=== PATIENT | female | born 2000 | race Caucasian/White ===

== ENCOUNTER 2018-12-09 13:33 | Emergency (ER) | payer MEDICAID ==
[2018-12-09 14:12] LABS: Basophils % (A) 1 %; Eosinophils # (A) 0.2 k/uL (0-0.7); Eosinophils % (A) 3 %; HCT 45.1 % (34.0-46.0); HGB 14.4 gm/dL (11.4-16.0); Lymphocytes # (A) 2.7 k/uL (1.0-4.8); Lymphocytes % (A) 37 %; MCHC 31.8 g/dL (31.0-37.0); MCV 94.4 fL (80.0-100.0); Mean Platelet Volume 7.3; Monocytes # (A) 0.3 k/uL (0-1.0); Monocytes % (A) 4 %; Neutrophils % (A) 53 %; Platelet Count 268 k/uL (150-450); RBC 4.78 m/uL (3.80-5.40); RDW 12.7 % (11.5-15.5); WBC 7.4 k/uL (4.0-11.0)
--- NOTE | 2018-12-09 14:18 | ED ---
Female Urogenital HPI - General Chief complaint: Vaginal Bleeding Stated complaint: Vaginal Bleeding Time Seen by Provider: 12/09/18 13:50 Source: patient, RN notes reviewed Mode of arrival: ambulatory Limitations: no limitations - History of Present Illness Initial comments: This 18-year-old female presents emergency from chief complaint of vaginal blee ding. Patient states symptoms started today. Patient stopped control with September. She states that she stopped intentions to becoming . Patient states that bleeding is slightly heavier than her usual menstrual cycle. She denies any positive test at home. She states that she's taken multiple and states that she takes some approximately once a week. She has no current urinary symptoms. Denies fevers chills no flank pain. Last Menstrual Period: 10/27/18 - Related Data Home Medications Medication Instructions Recorded Confirmed No Known Home Medications 12/09/18 12/09/18 Allergies Allergy/AdvReac Type Severity Reaction Status Date / Time No Known Allergies Allergy Verified 12/09/18 14:18 Review of Systems ROS Statement: Those systems with pertinent positive or pertinent negative responses have been documented in the HPI. ROS Other: All systems not noted in ROS Statement are negative. Past Medical History Past Medical History: No Reported History History of Any Multi-Drug Resistant Organisms: None Reported Past Surgical History: No Surgical Hx Reported Past Psychological History: No Psychological Hx Reported Smoking Status: Never smoker Past Alcohol Use History: Occasional Past Drug Use History: None Reported General Exam Limitations: no limitations General appearance: alert, in no apparent distress Head exam: Present: atraumatic, normocephalic, normal inspection Eye exam: Present: normal appearance, PERRL, EOMI. Absent: scleral icterus, conjunctival injection, periorbital swelling ENT exam: Present: normal exam, normal oropharynx, mucous membranes moist, TM's normal bilaterally Neck exam: Present: normal inspection, full ROM. Absent: tenderness, meningismus, lymphadenopathy Respiratory exam: Present: normal lung sounds bilaterally. Absent: respiratory distress, wheezes, rales, rhonchi, stridor Cardiovascular Exam: Present: regular rate, normal rhythm, normal heart sounds. Absent: systolic murmur, diastolic murmur, rubs, gallop, clicks GI/Abdominal exam: Present: soft, normal bowel sounds. Absent: distended, tenderness, guarding, rebound, rigid Back exam: Absent: CVA tenderness (R), CVA tenderness (L) Neurological exam: Present: alert Skin exam: Present: warm, dry, intact, normal color. Absent: rash Course Vital Signs 12/09/18 13:37 Temperature 98.3 F Pulse Rate 67 Respiratory 16 Rate Blood Pressure 134/78 O2 Sat by Pulse 98 Oximetry Medical Decision Making - Medical Decision Making Laboratory unremarkable. I do feel that the patient's bleeding is related to stopping her control. 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 Patient had a negative test at this time. Patient discharged in stable condition. - Lab Data Result diagrams: 12/09/18 14:05 12/09/18 14:05 Lab Results 12/09/18 12/09/18 12/09/18 Range/Units 14:05 14:05 14:05 WBC 7.4 (4.0-11.0) k/uL RBC 4.78 (3.80-5.40) m/uL Hgb 14.4 (11.4-16.0) gm/dL Hct 45.1 (34.0-46.0) % MCV 94.4 (80.0-100.0) fL MCH 30.0 (25.0-35.0) pg MCHC 31.8 (31.0-37.0) g/dL RDW 12.7 (11.5-15.5) % Plt Count 268 (150-450) k/uL Neutrophils % 53 % Lymphocytes % 37 % Monocytes % 4 % Eosinophils % 3 % Basophils % 1 % Neutrophils # 4.0 (1.3-7.7) k/uL Lymphocytes # 2.7 (1.0-4.8) k/uL Monocytes # 0.3 (0-1.0) k/uL Eosinophils # 0.2 (0-0.7) k/uL Basophils # 0.0 (0-0.2) k/uL Sodium 139 (137-145) mmol/L Potassium 3.9 (3.5-5.1) mmol/L Chloride 106 (98-107) mmol/L Carbon Dioxide 24 (22-30) mmol/L Anion Gap 9 mmol/L BUN 10 (7-17) mg/dL Creatinine 0.92 (0.52-1.04) mg/dL Est GFR (CKD-EPI)AfAm >90 (>60 ml/min/1.73 sqM) Est GFR (CKD-EPI)NonAf >90 (>60 ml/min/1.73 sqM) Glucose 93 (74-99) mg/dL Calcium 9.8 (8.4-10.2) mg/dL Total Bilirubin 1.6 H (0.2-1.3) mg/dL AST 38 H (14-36) U/L ALT 54 H (9-52) U/L Alkaline Phosphatase 61 (38-126) U/L Total Protein 7.3 (6.3-8.2) g/dL Albumin 4.4 (3.5-5.0) g/dL Urine Color Urine Appearance (Clear) Urine pH (5.0-8.0) Ur Specific [place] (1.001-1.035) Urine Protein (Negative) Urine Glucose (UA) (Negative) Urine Ketones (Negative) Urine Blood (Negative) Urine Nitrite (Negative) Urine Bilirubin (Negative) Urine Urobilinogen (<2.0) mg/dL Ur Leukocyte Esterase (Negative) Urine RBC (0-5) /hpf Urine WBC (0-5) /hpf Ur Squamous Epith Cells (0-4) /hpf Urine Bacteria (None) /hpf Urine HCG, Qual Not Detected (Not Detectd) 12/09/18 Range/Units 14:05 WBC (4.0-11.0) k/uL RBC (3.80-5.40) m/uL Hgb (11.4-16.0) gm/dL Hct (34.0-46.0) % MCV (80.0-100.0) fL MCH (25.0-35.0) pg MCHC (31.0-37.0) g/dL RDW (11.5-15.5) % Plt Count (150-450) k/uL Neutrophils % % Lymphocytes % % Monocytes % % Eosinophils % % Basophils % % Neutrophils # (1.3-7.7) k/uL Lymphocytes # (1.0-4.8) k/uL Monocytes # (0-1.0) k/uL Eosinophils # (0-0.7) k/uL Basophils # (0-0.2) k/uL Sodium (137-145) mmol/L Potassium (3.5-5.1) mmol/L Chloride (98-107) mmol/L Carbon Dioxide (22-30) mmol/L Anion Gap mmol/L BUN (7-17) mg/dL Creatinine (0.52-1.04) mg/dL Est GFR (CKD-EPI)AfAm (>60 ml/min/1.73 sqM) Est GFR (CKD-EPI)NonAf (>60 ml/min/1.73 sqM) Glucose (74-99) mg/dL Calcium (8.4-10.2) mg/dL Total Bilirubin (0.2-1.3) mg/dL AST (14-36) U/L ALT (9-52) U/L Alkaline Phosphatase (38-126) U/L Total Protein (6.3-8.2) g/dL Albumin (3.5-5.0) g/dL Urine Color Light Yellow Urine Appearance Cloudy H (Clear) Urine pH 6.5 (5.0-8.0) Ur Specific [place] 1.005 (1.001-1.035) Urine Protein Negative (Negative) Urine Glucose (UA) Negative (Negative) Urine Ketones Negative (Negative) Urine Blood Moderate H (Negative) Urine Nitrite Negative (Negative) Urine Bilirubin Negative (Negative) Urine Urobilinogen <2.0 (<2.0) mg/dL Ur Leukocyte Esterase Negative (Negative) Urine RBC 1 (0-5) /hpf Urine WBC 1 (0-5) /hpf Ur Squamous Epith Cells 8 H (0-4) /hpf Urine Bacteria Rare H (None) /hpf Urine HCG, Qual (Not Detectd) Disposition Clinical Impression: Menorrhagia Disposition: HOME SELF-CARE Condition: Stable Instructions (If sedation given, give patient instructions): Menorrhagia (ED) Additional Instructions: Please return to the Emergency Department if symptoms worsen or any other concerns. Is patient prescribed a controlled substance at d/c from ED?: No Referrals: Nonstaff,Physician [Primary Care Provider] - 1-2 days Time of Disposition: 14:59
[2018-12-09 14:32] LABS: Appearance,Urine Cloudy (Clear); Bacteria,Urine Rare /hpf; Bilirubin,Urine Negative (Negative); Blood,Urine Moderate (Negative); Color,Urine Light Yellow; Glucose,Urine (UA) Negative (Negative); Ketones,Urine Negative (Negative); Leukocyte Esterase,Urine Negative (Negative); Nitrite,Urine Negative (Negative); PH, Urine 6.5 (5.0-8.0); Protein,Urine Negative (Negative); RBC,Urine 1 /hpf (0-5); Specific Gravity,Urine 1.005 (1.001-1.035); Squamous Epithelial Cell,Urine 8 /hpf (0-4); Urobilinogen,Urine <2.0 mg/dL (<2.0)
[2018-12-09 14:40] LABS: ALT 54 U/L (9-52); AST 38 U/L (14-36); African American GFR (CKD) >90 (>60 ml/min/1.73 sqM); Albumin 4.4 g/dL (3.5-5.0); Alkaline Phosphatase 61 U/L (38-126); Anion Gap 9 mmol/L; Blood Urea Nitrogen 10 mg/dL (7-17); Calcium 9.8 mg/dL (8.4-10.2); Carbon Dioxide 24 mmol/L (22-30); Chloride 106 mmol/L (98-107); Glucose 93 mg/dL (74-99); Potassium 3.9 mmol/L (3.5-5.1); Sodium 139 mmol/L (137-145); Total Bilirubin 1.6 mg/dL (0.2-1.3); Total Protein 7.3 g/dL (6.3-8.2)
[2018-12-09 15:19] VITALS: BP 126/85; PULSE 68; RESP 18; TEMP 97.8
== END 2018-12-09 15:22 | disposition home or self-care (01) ==
LOC: EC 13:33
DX: N92.0 Excessive and frequent menstruation with regular cycle (principal); Z32.02 Encounter for pregnancy test, result negative
CPT/HCPCS: 36415; 80053; 81001; 81025; 85025; 99284

== ENCOUNTER → 2019-06-26 | Outpatient (CLI) | payer MEDICAID ==
--- NOTE | 2019-06-26 09:30 | US ---
EXAMINATION TYPE: Transabdominal DATE OF EXAM: 06/26/2019 9:15 AM COMPARISON: NONE CLINICAL HISTORY: Z36 confirm dates. EXAM PERFORMED: Transabdominal (TA) EXAM MEASUREMENTS: GESTATIONAL AGE / DATING Physician Established: Not yet established Dates by LMP: (11 weeks/2 days) EDC: 01/13/20 Dates by First Scan: No previous this is first scan Dates by Current Scan for: (10 weeks/3 days) EDC: 01/19/20 MATERNAL ANATOMY Uterus: 11.0 x 5.1 x 7.2cm Right Ovary: 2.5 x 1.8 x 2.0 Left Ovary: 2.6 x 1.6 x 1.5 Post CDS / Adnexa: wnl Presence of free fluid: no GESTATION / SURVEY CRL: 3.5 (10 weeks/3 days) Yolk Sac (normal less than 6mm): 5mm Heart Rate: 172 bpm Rhythm: Normal IUP: Viable IUP Date of LMP: 01/13/20 Beta HcG (if available): Not available at this time Single live intrauterine gestation is confirmed as gestational sac, yolk sac, and pole are iden tified. No free fluid in pelvic cul-de-sac. Both ovaries seen without suspicious extraovarian adnexal mass. IMPRESSION: Single live intrauterine gestation is confirmed, mean crown-rump length is 3.5 cm corresp onding to 10 week 3 day old fetus.
[2019-06-26 10:20] LABS: HCT 40.9 % (34.0-46.0); HGB 13.6 gm/dL (11.4-16.0); MCH 31.5 pg (25.0-35.0); MCHC 33.3 g/dL (31.0-37.0); MCV 94.7 fL (80.0-100.0); Mean Platelet Volume 8.3; Platelet Count 223 k/uL (150-450); RBC 4.32 m/uL (3.80-5.40); RDW 12.2 % (11.5-15.5); WBC 10.3 k/uL (4.0-11.0)
[2019-06-26 10:32] LABS: African American GFR (CKD) >90 (>60 ml/min/1.73 sqM); Glucose 84 mg/dL (74-99); Non-African American GFR(CKD) >90 (>60 ml/min/1.73 sqM)
[2019-06-26 16:50] LABS: Hepatitis B Surface Antigen Non-Reactive (Non-Reactive)
[2019-06-26 17:41] LABS: HIV 2 AB Non-Reactive (Non-Reactive); HIV AB P24 Non-Reactive (Non-Reactive); HIV P24 AG Non-Reactive (Non-Reactive)
== END | disposition home or self-care (01) ==
LOC: RADUSWWP 08:55
PROVIDERS: ATTEND Obstetrics & Gynecology
DX: Z36.87 Encounter for antenatal screening for uncertain dates (principal); Z3A.10 10 weeks gestation of pregnancy; Z34.01 Encounter for supervision of normal first pregnancy, first trimester
CPT/HCPCS: 36415; 76801; 82565; 82947; 85027; 86762; 86780; 86850; 86900; 86901; 87340; 87390

== ENCOUNTER → 2019-08-21 | Outpatient (CLI) | payer MEDICAID ==
--- NOTE | 2019-08-21 12:28 | US ---
EXAMINATION TYPE: US OB anatomy transabd DATE OF EXAM: 08/21/2019 COMPARISON: NONE HISTORY: O36.62X0 LARGE FOR DATES TECHNIQUE: Transabdominal (TA) EXAM MEASUREMENTS: GESTATIONAL AGE / DATING Physician Established: (19 weeks/2 days) EDC: 01/13/20 Dates by LMP: (19 weeks/2 days) EDC: 01/13/20 Dates by First Scan: (18 weeks/3 days) EDC: 01/19/20 Dates by Current Scan for: (18 weeks/3 days) EDC: 01/19/20 SURVEY IUP: Single PLACENTA: Anterior PREVIA: No previa ABHINAV: 13.8 cm CERVICAL LENGTH (transabdominal: norm > 3.0cm): 4.2 cm BIOMETRY PRESENTATION: Vertex BPD: 4.2 cm 18 weeks / 4 days HC: 15.5 cm 18weeks / 3 days AC: 12.9 cm 18 weeks / 3 days FL: 2.8 cm 18 weeks / 3 days ESTIMATED WEIGHT IN GRAMS: 241 grams ESTIMATED WEIGHT IN LBS/OZ: 0 lbs. 9 oz. WEIGHT PERCENTAGE BASED ON ESTABLISHED DATE: 9.9 % HC/AC: 1.2 FL/AC: 12.4 HEART RATE: 144 bpm RHYTHM: Normal ANATOMY SEEN (within normal limits): * Lateral Vent (< 1 cm) 0.5 cm * Cisterna Magna (< 1.1 cm) 0.2 cm * Nuchal Fold (< 0.6 cm) 0.4 cm * Cerebellum (varies with age) 1.7 cm Choroid Plexus (bilateral) Midline Falx Cavus Septi Pellucidi Four Chamber Heart Outflow tracts: LVOT/RVOT Stomach Situs Nose / Lips Diaphragm Kidneys (bilateral) Bladder Cord Insert Three Vessel Cord Longitudinal Spine Transverse Spine Arms (bilateral) Legs (bilateral) Maternal Urinary bladder is sonolucent. Posterior wall is normal. IMPRESSION: 1. Single intrauterine gestation estimated at 18 weeks 3 days gestation. Cardiac activity measuring 1 44 bpm was observed during the study. 2. Fetus is within the 10th percentile weight based on current measurements.
== END | disposition home or self-care (01) ==
LOC: RADUSWWP 10:13
PROVIDERS: ATTEND Obstetrics & Gynecology
DX: O36.62X0 Maternal care for excessive fetal growth, second trimester, not applicable or unspecified (principal); Z3A.18 18 weeks gestation of pregnancy
CPT/HCPCS: 76811

== ENCOUNTER → 2019-10-01 | Outpatient (CLI) | payer MEDICAID ==
[2019-10-01 11:14] LABS: HGB 11.5 gm/dL (11.4-16.0); MCHC 31.9 g/dL (31.0-37.0); MCV 100.4 fL (80.0-100.0); Mean Platelet Volume 8.1; Platelet Count 263 k/uL (150-450); RBC 3.59 m/uL (3.80-5.40); RDW 12.3 % (11.5-15.5); WBC 10.7 k/uL (4.0-11.0)
== END | disposition home or self-care (01) ==
LOC: LABWHC1 09:20
PROVIDERS: ATTEND Obstetrics & Gynecology
DX: Z34.02 Encounter for supervision of normal first pregnancy, second trimester (principal); Z3A.00 Weeks of gestation of pregnancy not specified
CPT/HCPCS: 36415; 82950; 85027

== ENCOUNTER → 2019-12-12 | Outpatient (CLI) | payer MEDICAID ==
--- NOTE | 2019-12-12 14:38 | US ---
EXAMINATION TYPE: US OB >= 14 wk fetus DATE OF EXAM: 12/12/2019 COMPARISON: US 08/21/19 CLINICAL HISTORY: O36.63X0 Third trimester large for dates TECHNIQUE: Transabdominal (TA) GESTATIONAL AGE / DATING Physician Established: (35 weeks/3 days) EDC: 01/13/20 Dates by LMP: 04/08/19 (35 weeks/3 days) EDC: 01/13/20 Dates by First Scan: 06/26/19 (10 weeks/3 days) EDC: 01/19/20 Dates by Current Scan: (33 weeks/1 days) EDC: 01/29/20 Beta HCG (if available): Not available at this time SURVEY IUP: Single PLACENTA: Anterior PREVIA: No Previa ABHINAV: 13.6 cm Normal CERVICAL LENGTH (transabdominal: norm > 3.0cm): 5.8 cm BIOMETRY PRESENTATION: Vertex LIE: Longitudinal BPD: 8.4 cm 33 weeks / 6 days HC: 30.0 cm 33 weeks / 2 days AC: 29.7 cm 33 weeks / 5 days FL: 6.5 cm 33 weeks / 4 days ESTIMATED WEIGHT IN GRAMS: 2244 grams ESTIMATED WEIGHT IN LBS/OZ: 4 lbs. 15 oz. WEIGHT PERCENTAGE BASED ON ESTABLISHED DATES: 9.6% HC/AC: 1.0 Normal FL/AC: 21.9 Normal HEART RATE: 143 bpm RHYTHM: Normal Single, viable IUP with HR-143 bpm. Dates by Current Scan: (33 weeks/1 days) EDC: 01/29/20 Kidneys, bladder, stomach, 4 chamber heart visualized. Femur length to head circumference ratio is slightly elevated at 21.73. (Normal 19.83-21.54) IMPRESSION: 1. Single intrauterine gestation estimated at 33 weeks 1 day gestation based on current ultrasound me asurements. This is compared to the 35 weeks 3 days gestation based on the physician established justus ing. 2. Cardiac activity measures 143 bpm.
== END | disposition home or self-care (01) ==
LOC: RADUSWWP 09:45
PROVIDERS: ATTEND Obstetrics & Gynecology
DX: O36.63X0 Maternal care for excessive fetal growth, third trimester, not applicable or unspecified (principal); Z3A.35 35 weeks gestation of pregnancy
CPT/HCPCS: 76805

== ENCOUNTER → 2019-12-29 | Outpatient (CLI) | payer MEDICAID ==
--- NOTE | 2019-12-29 20:53 | US ---
EXAMINATION TYPE: US OB >= 14 wk fetus DATE OF EXAM: 12/29/2019 COMPARISON: 12/12/2019 CLINICAL HISTORY: 19-year-old female 036.5930 Third trimester; small for dates TECHNIQUE: Transabdominal (TA) FINDINGS: GESTATIONAL AGE / DATING Physician Established: (37 weeks/6 days) EDC: 01/13/20 Dates by LMP: (37 weeks/6 days) EDC: 01/13/20 Dates by First Scan: (37 weeks/6 days) EDC: 01/13/20 Dates by Current Scan: (35 weeks/0 days) EDC: 02/02/20 SURVEY IUP: Single PLACENTA: Anterior PREVIA: No Previa ABHINAV: 12.3 cm CERVICAL LENGTH (transabdominal: norm > 3.0cm): 3.1 cm BIOMETRY PRESENTATION: Vertex BPD: 8.7 cm 35 weeks / 1 days HC: 31.2 cm 35 weeks / 0 days AC: 31.5 cm 35 weeks / 3 days FL: 6.9 cm 35 weeks / 4 days ESTIMATED WEIGHT IN GRAMS: 2659 grams ESTIMATED WEIGHT IN LBS/OZ: 5 lbs. 14 oz. WEIGHT PERCENTAGE BASED ON ESTABLISHED DATES: 8.9 % HC/AC: 1.0 FL/AC: 21.9 HEART RATE: 142 bpm RHYTHM: Normal COMMUNITY SERVICE TECHNICIAN NOTES: Head low, difficult to measure. IMPRESSION: Single live intrauterine with established gestational age of 37 weeks 6 days by LMP. Curren t ultrasound biometry (35 weeks 0 days) is nearly 3 weeks smaller than established dates, placing the gestation at the 9th percentile for weight (versus 10th percentile on 12/12/2019). 4 days less growt h than expected as compared to 12/12/2019. Overall 2 weeks less growth than expected as compared to t he 06/26/2019 ultrasound.
== END | disposition home or self-care (01) ==
LOC: RADUSWWP 16:17
PROVIDERS: ATTEND Obstetrics & Gynecology
DX: O36.5930 Maternal care for other known or suspected poor fetal growth, third trimester, not applicable or unspecified (principal); Z3A.37 37 weeks gestation of pregnancy
CPT/HCPCS: 76805

== ENCOUNTER 2020-01-01 16:00 | Inpatient (IN) | payer MEDICAID ==
--- NOTE | 2020-01-01 06:34 | P.HPOB ---
History of Present Illness H&P Date: 01/01/20 Chief Complaint: Intrauterine growth restriction This patient is a pleasant 19-year-old 1 para 0 female estimated date of confinement 01/13/2020 estimated gestational age 38-2/7 weeks who presents for two-stage induction of labor secondary to an unfavorable cervix with intrauterine growth restriction, growth less than the 10th percentile. Patient was found to have decreased growth at a 36 week ultrasound and repeat ultrasound 2 weeks later did show growth but now less than the 10th percentile. Amniotic fluid index was normal and FL/AC was normal which is suggestive of small for gestational age however since she is less than the 10th percentile is recommended to proceed with delivery at this time. care otherwise has been uncomplicated. Review of Systems Genitourinary: Reports Menstruation: Reports amenorrhea Past Medical History Past Medical History: No Reported History History of Any Multi-Drug Resistant Organisms: None Reported Past Surgical History: No Surgical Hx Reported Past Anesthesia/Blood Transfusion Reactions: No Reported Reaction Past Psychological History: No Psychological Hx Reported Smoking Status: Never smoker Past Alcohol Use History: None Reported, Occasional Past Drug Use History: None Reported Medications and Allergies Home Medications Medication Instructions Recorded Confirmed Type No Known Home Medications 12/09/18 12/09/18 History Allergies Allergy/AdvReac Type Severity Reaction Status Date / Time No Known Allergies Allergy Verified 12/09/18 14:18 Exam - OBG Physical Exam Abdomen: bowel sounds normal Vulva: both: normal Vagina: normal moisture, no discharge Cervix: no lesion (Cervix in the office was closed and uneffaced), no discharge Uterus: enlarged (Fundal height was consistent with gestational age) Results blood work shows she is O positive, rubella immune, RPR nonreactive, HIV is nonreactive, hepatitis B is negative, Glucola was normal, group B strep was negative, ultrasound this week showed estimated weight of 5 lbs. 14 oz. which is less than the 10th percentile for gestational age. Assessment and Plan Assessment: This is a pleasant 19-year-old 1 para 0 female 38-2/7 weeks gestation with intrauterine growth restriction who presents for two-stage induction of labor. Plan is Cervidil placement and anticipate vaginal delivery. (1) 38 weeks gestation of Status: Acute Code(s): Z3A.38 - 38 WEEKS GESTATION OF SNOMED Code(s): 15784006 (2) IUGR (intrauterine growth restriction) Status: Acute Code(s): PWV3945 - SNOMED Code(s): 51059240
[2020-01-01] MEDS ORDERED: DINOPROSTONE 10 MG INSERT.ER VAGINAL ONE (16:15)
[2020-01-02] MEDS ORDERED: LIDOCAINE 0.5% (PF) 5 MG/ML (50 ML SDV) SQ PRN (05:44)
[2020-01-02] MEDS ORDERED: CARBOPROST TROMETHAMINE 250 MCG/ML 1 ML AMP IM PRN (05:44)
[2020-01-02] MEDS ORDERED: TERBUTALINE 1 MG/ML VIAL SQ PRN (05:44)
[2020-01-02] MEDS ORDERED: METHYLERGONOVINE 0.2 MG/ML 1 ML AMP IM PRN (05:44)
[2020-01-02] MEDS ORDERED: OXYTOCIN 10 UNIT/ML 1 ML VIAL IM PRN (05:44)
[2020-01-02] MEDS ORDERED: OXYTOCIN 30 UNITS/500 ML NS 30 UNIT in SALINE 1 500ML.BAG IV SCH (05:44)
[2020-01-02] MEDS: LACTATED RINGERS 1,000 ML IV SCH ×3 (05:53→14:54)
[2020-01-02 06:19] LABS: Basophils % (A) 0 %; Eosinophils % (A) 0 %; HCT 36.8 % (34.0-46.0); HGB 12.1 gm/dL (11.4-16.0); Lymphocytes # (A) 2.8 k/uL (1.0-4.8); Lymphocytes % (A) 20 %; MCH 30.9 pg (25.0-35.0); MCHC 32.9 g/dL (31.0-37.0); MCV 93.8 fL (80.0-100.0); Mean Platelet Volume 7.8; Monocytes # (A) 0.5 k/uL (0-1.0); Monocytes % (A) 4 %; Neutrophils # (A) 10.8 k/uL (1.3-7.7); Neutrophils % (A) 75 %; Platelet Count 313 k/uL (150-450); RBC 3.92 m/uL (3.80-5.40); RDW 12.8 % (11.5-15.5); WBC 14.3 k/uL (3.8-10.6)
[2020-01-02] MEDS: BUTORPHANOL 1 MG/ML 1 ML VIAL IV PRN ×2 (08:35→11:28)
[2020-01-02] MEDS ORDERED: SODIUM CHLORIDE 0.9% 100 ML BAG ONE (13:22)
[2020-01-02] MEDS ORDERED: ROPIVACAINE 5MG/ML 20ML VIAL ONE (13:22)
[2020-01-02] MEDS ORDERED: fentaNYL (PF) 50 MCG/ML 5 ML AMP ONE (13:22)
[2020-01-02] MEDS ORDERED: LANOLIN CREAM 5 GM TUBE TOPICAL PRN (18:23)
[2020-01-02] MEDS ORDERED: OXYTOCIN 20 UNITS/1000 ML NS 1,000 ML IV SCH (18:23)
[2020-01-02] MEDS ORDERED: diphenhydrAMINE 25 MG CAP PO PRN (18:23)
[2020-01-02] MEDS ORDERED: diphenhydrAMINE 50 MG/ML 1 ML VIAL IVP PRN (18:23)
[2020-01-02] MEDS ORDERED: bisacodyL 10 MG SUPP RECTAL PRN (18:23)
[2020-01-02] MEDS ORDERED: ACETAMINOPHEN TAB 325 MG TAB PO PRN (18:23)
[2020-01-02] MEDS ORDERED: BENZOCAINE/MENTHOL SPRAY 1 GM/SPRAY AEROSOL TOPICAL PRN (18:23)
[2020-01-02] MEDS ORDERED: SIMETHICONE 80 MG CHEWABLE PO PRN (18:23)
[2020-01-02] MEDS ORDERED: ZOLPIDEM 5 MG TAB PO PRN (18:23)
[2020-01-02] MEDS ORDERED: HYDROCORTISONE 2.5% RECTAL CREAM 30 GM TUBE RECTAL PRN (18:23)
[2020-01-02] MEDS ORDERED: SENNOSIDES-DOCUSATE SODIUM 1 EACH TAB PO SCH (18:23)
--- NOTE | 2020-01-02 18:33 | P.PROBDLV ---
Vaginal Delivery Note - . Vaginal Delivery Note: Normal vaginal delivery viable male infant Apgars 9 and 9 delivery time is 1801 hrs. Please see dictated H&P for intimate details of this patient's admission. Brief summary is a pleasant 19-year-old 1 para 0 female 38-2/7 weeks gestation who is admitted to labor and delivery for two-stage induction of labor secondary to intrauterine growth restriction. Patient has a Cervidil placed last evening and this morning she is 2 cm dilated. She has artificial rupture membranes for clear fluid. Labor is induced with Pitocin per protocol. She gets several doses of Stadol for pain control and then an epidural. Patient's labor progresses quickly and thereafter she gets to complete. She pushes for approximately 35 minutes and pushes the head to the perineum. Posterior perineum was supported and we have controlled delivery of the 's head over the intact perineum. Infant's presentation is straight occiput anterior. After delivery of the infant's head, the mouth and nares are bulb suctioned. There is a loose nuchal cord which is reduced. Is R transverse or with maternal effort she delivers them right anterior and then the left posterior and rest this 's body. This is a vigorous viable male Apgars are 9 and 9 delivery time is 1801 hrs. appears grossly normal. After the umbilical cord is some pulsating is doubly clamped and cut. Does appear to be trivascular. The placenta is then spontaneously delivered intact. Inspection of perineum shows a first-degree posterior laceration is repaired with 3-0 Vicryl in the usual fashion. Excellent reapproximation is noted. Estimated blood loss deliveries approximately 150 mL. There are no complications. and mother are stable in delivery room. All counts are correct 3.
[2020-01-02] MEDS: IBUPROFEN 600 MG TAB PO PRN (19:12)
[2020-01-02] MEDS: SENNOSIDES-DOCUSATE SODIUM 1 EACH TAB PO SCH (19:13)
[2020-01-03] MEDS: IBUPROFEN 600 MG TAB PO PRN ×4 (03:22→22:30)
--- NOTE | 2020-01-03 06:43 | P.PNOBGVD ---
Subjective - Subjective Patient reports: Reports appetite normal, Reports voiding normally, Reports pain well controlled, Reports ambulating normally : doing well Objective - Latest Vital Signs Latest vital signs: Vital Signs Temp Pulse Resp BP 01/03/20 03:34 98.1 F 76 16 118/62 01/03/20 00:00 98.4 F 89 16 135/77 01/02/20 20:23 103 H 16 135/60 01/02/20 19:53 112 H 16 126/61 01/02/20 19:23 98.0 F 113 H 16 132/59 01/02/20 19:08 105 H 16 123/57 01/02/20 18:53 96 16 115/56 01/02/20 18:38 105 H 16 122/55 01/02/20 18:23 105 H 16 118/58 Intake and Output 01/02/20 01/02/20 01/03/20 14:59 22:59 06:59 Intake Total 1000 600 Output Total 300 Balance 1000 300 Intake: IV 1000 Oral 600 Output: Estimated Blood Loss 300 Other: # Voids 4 1 - Exam Lungs: bilateral: normal Chest: Normal S1, Normal S2 Extremities: Present: normal Abdomen: Present: normal appearance, soft Uterus: Present: normal, firm Assessment and Plan Assessment: day #1. Patient is resting without complaints. Vital signs are stable and she is afebrile. Uterus is firm nontender she's having normal lochia. I impression this is a normal course. Plan is to continue routine care discharge home tomorrow (1) 38 weeks gestation of Current Visit: No Status: Acute Code(s): Z3A.38 - 38 WEEKS GESTATION OF SNOMED Code(s): 60846264 (2) IUGR (intrauterine growth restriction) Current Visit: No Status: Acute Code(s): [id number] - SNOMED Code(s): 64010696
[2020-01-03] MEDS: SENNOSIDES-DOCUSATE SODIUM 1 EACH TAB PO SCH ×2 (07:51→20:18)
[2020-01-04] MEDS: IBUPROFEN 600 MG TAB PO PRN (06:06)
[2020-01-04 07:21] VITALS: BP 132/66; PULSE 79; RESP 17; TEMP 97.7
--- NOTE | 2020-01-04 07:24 | P.PNOBGVD ---
Subjective - Subjective Patient reports: Reports appetite normal, Reports voiding normally, Reports pain well controlled, Reports ambulating normally : doing well Objective - Latest Vital Signs Latest vital signs: Vital Signs Temp Pulse Resp BP 01/04/20 07:18 97.7 F 79 17 132/66 01/03/20 23:12 97.9 F 78 16 125/70 01/03/20 16:00 98.2 F 79 17 127/80 01/03/20 07:56 97.9 F 88 17 126/74 - Exam Lungs: bilateral: normal Chest: Normal S1, Normal S2 Extremities: Present: normal Abdomen: Present: normal appearance, soft Uterus: Present: normal, firm Assessment and Plan Assessment: day #2. Patient is resting without complaints. Vital signs are stable she is afebrile. Uterus is firm nontender she's having normal lochia. I impression is a normal course. Plan is discharge home later today (1) 38 weeks gestation of Current Visit: No Status: Acute Code(s): Z3A.38 - 38 WEEKS GESTATION OF SNOMED Code(s): 47840019 (2) IUGR (intrauterine growth restriction) Current Visit: No Status: Acute Code(s): [id number] - SNOMED Code(s): 29135603
--- NOTE | 2020-01-04 07:29 | P.DS ---
Providers Date of admission: 01/01/20 16:00 Expected date of discharge: 01/04/20 Attending physician: Edson Pina Primary care physician: Edson Pina - Discharge Diagnosis(es) (1) 38 weeks gestation of Current Visit: No Status: Acute (2) IUGR (intrauterine growth restriction) Current Visit: No Status: Acute Hospital Course: Please see dictated H&P for intimate details of this patient's admission. In brief summary, this patient is a pleasant 19-year-old 1 para 0 female admitted to labor and delivery for two-stage induction of labor due to suspected IUGR. Patient has two-stage induction of labor was on have a vaginal delivery viable male . Please see dictated delivery note. patient does well and on #2 felt be stable for discharge home follow up with me in 6 weeks. Procedures: Two-stage induction of labor and normal vaginal delivery Patient Condition at Discharge: Good Plan - Discharge Summary New Discharge Prescriptions: New Ibuprofen [Motrin] 600 mg PO Q6HR PRN #40 tab PRN Reason: Mild Pain Or Fever >= 100.5 No Action Pnv No.95/Ferrous Fum/Folic AC [ Multivitamin Tablet] 1 each PO DAILY Discharge Medication List Pnv No.95/Ferrous Fum/Folic AC [ Multivitamin Tablet] 1 each PO DAILY 01/01/20 [History] Ibuprofen [Motrin] 600 mg PO Q6HR PRN #40 tab 01/04/20 [Rx] Follow up Appointment(s)/Referral(s): Edson Pina MD [Primary Care Provider] - 02/12/20 10:45 am Patient Instructions/Handouts: Vaginal Delivery (DC) Activity/Diet/Wound Care/Special Instructions: No intercourse or anything per vagina for 6 weeks. Please call if any fever, chills, excessive vaginal bleeding, and/or abdominal pain. Discharge Disposition: HOME SELF-CARE
[2020-01-04] MEDS: SENNOSIDES-DOCUSATE SODIUM 1 EACH TAB PO SCH (07:42)
== END 2020-01-04 09:06 | disposition home or self-care (01) | DRG 807 ==
LOC: 4FBP 16:00
PROVIDERS: ADMIT Obstetrics & Gynecology; ATTEND Obstetrics & Gynecology
PROC: 3E033VJ Introduction of Other Hormone into Peripheral Vein, Percutaneous Approach (ICD-10-PCS; principal; 2020-01-02)
PROC: 3E0R3BZ Introduction of Anesthetic Agent into Spinal Canal, Percutaneous Approach (ICD-10-PCS; principal; 2020-01-02)
PROC: 3E0P7VZ Introduction of Hormone into Female Reproductive, Via Natural or Artificial Opening (ICD-10-PCS; principal; 2020-01-02)
PROC: 10E0XZZ Delivery of Products of Conception, External Approach (ICD-10-PCS; principal; 2020-01-02)
PROC: 00HU33Z Insertion of Infusion Device into Spinal Canal, Percutaneous Approach (ICD-10-PCS; principal; 2020-01-02)
PROC: 10907ZC Drainage of Amniotic Fluid, Therapeutic from Products of Conception, Via Natural or Artificial Opening (ICD-10-PCS; principal; 2020-01-02)
DX: O36.5930 Maternal care for other known or suspected poor fetal growth, third trimester, not applicable or unspecified (principal); Z37.0 Single live birth; O69.81X0 Labor and delivery complicated by cord around neck, without compression, not applicable or unspecified; O70.0 First degree perineal laceration during delivery; Z3A.38 38 weeks gestation of pregnancy
CPT/HCPCS: 85025; 86850; 86900; 86901